=== PATIENT | female | born 1990 | race Two or more races ===

== ENCOUNTER 2017-09-15 16:18 | Emergency (ER) | payer OTHER ==
[~2017-09-15] VITALS: Ht 162.6 cm; Wt 58.1 kg
[2017-09-15 16:25] VITALS: BP 126/84
[2017-09-15] MEDS ORDERED: IBUPROFEN600 MG ORAL (17:16)
[2017-09-15 17:36] VITALS: BP 126/84
--- NOTE | 2017-09-15 20:32 | Emergency Room Report ---
History of Present Illness General Chief Complaint: Burn/Smoke Inhalation Source: Patient Present Illness HPI The patient is a 26 old female presenting for burn injury of left hand which occurred at work today. She states that she was using boiling water which spilled onto her left hand. She immediately placed her hand in cold water. This occurred approximately 5 hours prior to arrival. Pain is a 6/10 burning sensation. Does not radiate. Worse with touch. She denies any other symptoms including numbness Allergies: Coded Allergies: PEANUT (Verified Allergy, Unknown, 09/15/17) SOY (Verified Allergy, Unknown, 09/15/17) Patient History Past Medical History: see triage record Pertinent Family History: none Last Menstrual Period: 08/16/2017 Reviewed Nursing Documentation: PMH: Agreed, PSxH: Agreed Nursing Documentation-PMH Past Medical History: No History, Except For Hx Asthma: Yes Review of Systems All Other Systems: negative except mentioned in HPI Physical Exam Vital Signs Date Time Temp Pulse Resp B/P (MAP) Pulse Ox O2 Delivery O2 Flow Rate FiO2 09/15/17 16:25 98.2 62 16 126/84 100 Room Air Sp02 EP Interpretation: reviewed, normal General Appearance: no apparent distress, alert, GCS 15, non-toxic Head: normocephalic, atraumatic Eyes: bilateral eye normal inspection, bilateral eye PERRL ENT: hearing grossly normal, normal pharynx, no angioedema, normal voice Musculoskeletal: back normal, gait/station normal, normal range of motion, non- tender Neurologic: alert, oriented x3, responsive, motor strength/tone normal, sensory intact, speech normal Psychiatric: judgement/insight normal, memory normal, mood/affect normal, no suicidal/homicidal ideation Skin: [place] - There are scattered areas of erythema on the first and second digits. No elevation or bubbling the skin. Tender to palpation. No numbness Medical Decision Making PA Attestation Dr. Pringle is my supervising physician. Patient management was discussed with my supervising physician Diagnostic Impression: Primary Impression: First degree burn of left hand Qualified Codes: T23.132A - Burn of first degree of multiple left fingers ( nail), not including thumb, initial encounter ER Course The patient is a 26 old female presenting for burn injury of left hand which occurred at work today DDx considered: 1st degree burn, 2nd degree burn, 3rd degree burn PE: NAD There are scattered areas of erythema on the first and second digits. No elevation or bubbling the skin. Tender to palpation. No numbness Pt will be DC'ed home with pain medication. ER precautions given Last Vital Signs Date Time Temp Pulse Resp B/P (MAP) Pulse Ox O2 Delivery O2 Flow Rate FiO2 09/15/17 17:36 98.2 76 16 126/84 100 Room Air Status: improved Disposition: HOME, SELF-CARE Condition: Improved Scripts Ibuprofen* (MOTRIN*) 600 Mg Tablet 600 MG ORAL Q8H Y for For Pain, #30 TAB 0 Refills Prov: HANNAH MANCINI 09/15/17 Referrals: NOT CHOSEN [facility]/,REFERRING (PCP) Patient Instructions: Burn Care Additional Instructions: I discussed my findings with the patient. All questions and concerns have been answered. Treatment and medication compliance have been addressed. I advised the patient that they need to follow up with PMD in 3-5 days. Return to ED if symptoms worsen, new symptoms arise, or if needed for any reason. Patient verbalized understanding of discharge instructions. HANNAH MANCINI Sep 15, 2017 20:32
== END 2017-09-15 17:35 | disposition home or self-care (01) ==
LOC: EMR 17:10
DX: T23.132A Burn of first degree of multiple left fingers (nail), not including thumb, initial encounter (principal); T31.0 Burns involving less than 10% of body surface; Z91.010 Allergy to peanuts; Z91.018 Allergy to other foods; X12.XXXA Contact with other hot fluids, initial encounter; Y92.89 Other specified places as the place of occurrence of the external cause; Y99.0 Civilian activity done for income or pay
CPT/HCPCS: 99283